=== PATIENT | female | born 1950 | race Caucasian/White ===

== ENCOUNTER 2024-05-13 13:12 | Emergency (ER) | payer MEDICAID ==
[~2024-05-13] VITALS: Ht 167.6 cm; Wt 73.0 kg
[2024-05-13 13:15] VITALS: O2SAT 98
[2024-05-13] MEDS: IBUPROFEN 400MG TABLET PO ONE (13:49)
[2024-05-13] MEDS: ACETAMINOPHEN 325MG TABLET PO ONE (13:49)
[2024-05-13] MEDS ORDERED: IBUP-2028 MT (14:50)
[2024-05-13 14:56] VITALS: BP 152/88; PULSE 62; RESP 16; TEMP 98.5; O2SAT 98
== END 2024-05-13 15:02 | disposition home or self-care (01) ==
LOC: ER 13:12
DX: M79.601 Pain in right arm (principal); M79.675 Pain in left toe(s); M79.672 Pain in left foot; I10 Essential (primary) hypertension
CPT/HCPCS: 73030; 73080; 73090; 73630; 99284; Z7610